=== PATIENT | female | born 1980 | race African-American/Black ===

== ENCOUNTER 2023-06-01 02:43 | Inpatient (IN) | payer BC, SELFPAY ==
[2023-05-31 18:35] VITALS: BP 139/94
--- NOTE | 2023-05-31 21:20 | ED.GENMED ---
History of Present Illness
<Lavern Pascual RISK ASSESSOR - Last Filed: 06/02/23 17:32>
General
Chief Complaint: Abdominal Pain
Source: patient
Exam Limitations: none
Time Seen by Provider: 05/31/23 21:19
Nursing documentation reviewed up to this point in time: agreed with
Travel History
Have you had any contact with someone who has COVID-19?: No
Do you have any symptoms of coronavirus? Fever > 100 degrees, chills, cough, shortness of breath, sore throat, loss of taste or smell, muscle aches, or headache?: No
History of Present Illness
History of Present Illness:
43-year-old female with history of fibroids and ovarian cyst removed, asthma presents stating for 1 week she could not pass gas or burp and she feels bloated. Anything she puts in her mouth whether it be water or something to eat, it 'scott in my
stomach.' She has also developed generalized abdominal pain and has not had a bowel movement since 4 days ago. She denies fever or chills. Denies UTI symptoms
Past History
<Lavern Pascual RISK ASSESSOR - Last Filed: 06/02/23 17:32>
Past History
ED Past Medical History: Other (Endometriosis, )
ED Past Surgical History: Gynecological (fibroid and cyst removal)
Social History
Tobacco: Non-smoker
Alcohol: Occasional
Drug: Marijuana (Daily)
Personal: Single
Living: alone
Employment: Employed
Review of Systems
<Lavern Pascual RISK ASSESSOR - Last Filed: 06/02/23 17:32>
Review of Systems
Allergies reviewed?: Yes
All Other Systems: ROS reviewed and negative except as documented in HPI and ROS
Constitutional: Denies fever
Respiratory: Denies cough or trouble breathing
Cardiac: Denies chest pain
ABD/GI: Reports abdominal pain and constipated; Denies nausea, vomiting, diarrhea, bloody stools or black stools
: Reports other (Currently menstruating); Denies dysuria, frequency, flank pain or urgency
Musculoskeletal: Reports no symptoms
Skin: Reports no symptoms
Neurological: Reports no symptoms
Phy Exam
<Lavern Pascaul, RISK ASSESSOR - Last Filed: 06/02/23 17:32>
Physical Exam
Physical Exam:
GENERAL: No acute distress. A&Ox3.
CONSTITUTIONAL: Afebrile.
EYES: Clear, conjunctivae normal
ENMT: moist mucus membranes, Pharynx nl
RESPIRATORY: Regular respirations, nonlabored, lungs clear.
CARDIOVASCULAR: Regular rate and rhythm, no murmurs, no rubs.
GI: Soft, generally tender to palpate, normal BS
Rectal exam: No stool in rectal vault, mildly heme positive but patient is currently menstruating
MUSCULOSKELETAL: Moves with ease. Well perfused.
SKIN: Warm, dry, normal
PSYCH: Normal mood and affect. Well kept, interactive and appropriate
NEUROLOGIC: Awake, alert and oriented. No focal neurological deficits
Course
<Lavern Pascual, RISK ASSESSOR - Last Filed: 06/02/23 17:32>
Orders/Labs/Results
Orders:
Orders
05/31/23 21:36
0.9% Sodium Chloride 1000 ml [Nss] 1,000 ml IV BOLUS
Mag Hydrox/Al Hydrox/Simeth [Maalox] 30 ml Phenobarb/Hyoscy/Atropine/Scop [] 10 ml Viscous Lidocaine 2% [Xylocaine Viscous Cup] 10 ml PO NOW
05/31/23 21:45
Phenobarb/Hyoscy/Atropine/Scop [] 10 ml .ROUTE .STK-MED ONE
05/31/23 21:46
Mag Hydrox/Al Hydrox/Simeth [Maalox] 30 ml .ROUTE .STK-MED ONE
Viscous Lidocaine 2% [Xylocaine Viscous Cup] 15 ml .ROUTE .STK-MED ONE
05/31/23 22:01
Complete Blood Count/With Diff Urgent
05/31/23 22:52
Comprehensive Metabolic Panel Urgent
HCG, Serum Qualitative Screen Urgent
Lipase Urgent
05/31/23 23:54
Add On- LAB Urgent
Tests Added?: serum HCG
06/01/23 00:15
CT Abd/Pel (IV only)-[facility] only Urgent
Comment: scan delayed hcg never ordered
Reason For Exam: bloating, abd pain
06/01/23 02:13
Admit/Transfer Patient As Directed
Co-Sign Provider:
Level of Care: Inpatient admission
Assign to:: Medical/Surgical
Physician / Group: Mak
Diagnosis: acute pancreatitis
Reason for Hospitalization: acute pancreatitis
Expected length of stay greater than two midnights?: Yes
ELOS- Estimated Length of Stay in days: 3
I certify the patient meets the requirements for IP care: Yes
06/01/23 02:14
Code Status As Directed
Resuscitation Status: Full Code
06/01/23 02:22
0.9% Sodium Chloride 1000 ml [Nss] 1,000 ml IV 125 mls/hr
Acetaminophen [Tylenol] 650 mg PO Q4HPRN PRN
Ketorolac [Toradol] 15 mg IV Q6HPRN PRN
Morphine Sulfate 2 mg IV Q4HPRN PRN
Ondansetron Injectable [Zofran] 4 mg IV Q6HPRN PRN
06/01/23 02:22
Activity As Directed
Activity Level: Out of Bed-Early Mobility
Vital Signs As Directed
Frequency: Per unit guidelines
DX Deep Vein Thrombosis Video Routine
06/01/23 05:55
Cardiovascular Evaluation IN AM
Complete Blood Count/With Diff IN AM
Comprehensive Metabolic Panel IN AM
Lipase IN AM
TSH IN AM
06/01/23 Breakfast
NPO
Allow oral meds: Yes
Allow clear liquids: Sips of Clears
NPO with Ice Chips: Yes
06/01/23 18:00
Enoxaparin Sodium [Lovenox] 40 mg SC QPM
Abnormal Lab Results
05/31/23 05/31/23
22:01 22:52
Neutrophils % 34.0 L %
(42.2-75.2)
Lymphocytes % 54.4 H %
(20.5-51.1)
Lipase 689 H U/L
(23-300)
05/31/23 22:01
05/31/23 22:52
Vital Signs
Initial and Last Documented VS:
Initial Vital Signs
Temp Pulse Resp BP Pulse Ox
98.0 F 67 18 139/94 98
05/31/23 18:35 05/31/23 18:35 05/31/23 18:35 05/31/23 18:35 05/31/23 18:35
Last Documented Vital Signs
Temp Pulse Resp BP Pulse Ox
98.2 F 64 20 150/86 99
06/01/23 15:10 06/01/23 15:10 06/01/23 15:10 06/01/23 15:10 06/01/23 15:10
<Federico Locke, DO - Last Filed: 06/08/23 09:47>
Orders/Labs/Results
Orders:
Orders
05/31/23 21:36
0.9% Sodium Chloride 1000 ml [Nss] 1,000 ml IV BOLUS
Mag Hydrox/Al Hydrox/Simeth [Maalox] 30 ml Phenobarb/Hyoscy/Atropine/Scop [] 10 ml Viscous Lidocaine 2% [Xylocaine Viscous Cup] 10 ml PO NOW
05/31/23 21:45
Phenobarb/Hyoscy/Atropine/Scop [] 10 ml .ROUTE .STK-MED ONE
05/31/23 21:46
Mag Hydrox/Al Hydrox/Simeth [Maalox] 30 ml .ROUTE .STK-MED ONE
Viscous Lidocaine 2% [Xylocaine Viscous Cup] 15 ml .ROUTE .STK-MED ONE
05/31/23 22:01
Complete Blood Count/With Diff Urgent
05/31/23 22:52
Comprehensive Metabolic Panel Urgent
HCG, Serum Qualitative Screen Urgent
Lipase Urgent
05/31/23 23:54
Add On- LAB Urgent
Tests Added?: serum HCG
06/01/23 00:15
CT Abd/Pel (IV only)-[facility] only Urgent
Comment: scan delayed hcg never ordered
Reason For Exam: bloating, abd pain
06/01/23 02:13
Admit/Transfer Patient As Directed
Co-Sign Provider:
Level of Care: Inpatient admission
Assign to:: Medical/Surgical
Physician / Group: Mak
Diagnosis: acute pancreatitis
Reason for Hospitalization: acute pancreatitis
Expected length of stay greater than two midnights?: Yes
ELOS- Estimated Length of Stay in days: 3
I certify the patient meets the requirements for IP care: Yes
06/01/23 02:14
Code Status As Directed
Resuscitation Status: Full Code
06/01/23 02:22
0.9% Sodium Chloride 1000 ml [Nss] 1,000 ml IV 125 mls/hr
Acetaminophen [Tylenol] 650 mg PO Q4HPRN PRN
Ketorolac [Toradol] 15 mg IV Q6HPRN PRN
Morphine Sulfate 2 mg IV Q4HPRN PRN
Ondansetron Injectable [Zofran] 4 mg IV Q6HPRN PRN
06/01/23 02:22
Activity As Directed
Activity Level: Out of Bed-Early Mobility
Vital Signs As Directed
Frequency: Per unit guidelines
DX Deep Vein Thrombosis Video Routine
06/01/23 05:55
Cardiovascular Evaluation IN AM
Complete Blood Count/With Diff IN AM
Comprehensive Metabolic Panel IN AM
Lipase IN AM
TSH IN AM
06/01/23 Breakfast
NPO
Allow oral meds: Yes
Allow clear liquids: Sips of Clears
NPO with Ice Chips: Yes
06/01/23 18:00
Enoxaparin Sodium [Lovenox] 40 mg SC QPM
Abnormal Lab Results
05/31/23 05/31/23
22:01 22:52
Neutrophils % 34.0 L %
(42.2-75.2)
Lymphocytes % 54.4 H %
(20.5-51.1)
Lipase 689 H U/L
(23-300)
05/31/23 22:01
05/31/23 22:52
Vital Signs
Initial and Last Documented VS:
Initial Vital Signs
Temp Pulse Resp BP Pulse Ox
98.0 F 67 18 139/94 98
05/31/23 18:35 05/31/23 18:35 05/31/23 18:35 05/31/23 18:35 05/31/23 18:35
Last Documented Vital Signs
Temp Pulse Resp BP Pulse Ox
98.2 F 64 20 150/86 99
06/01/23 15:10 06/01/23 15:10 06/01/23 15:10 06/01/23 15:10 06/01/23 15:10
<Lavern Pascual RISK ASSESSOR - Last Filed: 06/02/23 17:32>
MDM/Problems Addressed
Differential Diagnosis Includes:
Constipation, GERD, PUD, gastritis cholecystitis, cholelithiasis
MDM/Problems Addressed:
43-year-old female with history of fibroids and ovarian cyst removed, asthma presents stating for 1 week she could not pass gas or burp and she feels bloated. Anything she puts in her mouth whether it be water or something to eat, it 'scott in my
stomach.' She has also developed generalized abdominal pain and has not had a bowel movement since 4 days ago. She denies fever or chills. Denies UTI symptoms
Afebrile, NAD
05/31/2023 2347 PM
CBC normal
CMP normal
Lipase elevated at [address] scan
States the GI cocktail
Case discussed with Dr. Sanchez who will assume care from this point.
<Federico Locke, DO - Last Filed: 06/08/23 09:47>
MDM/Problems Addressed
MDM/Problems Addressed:
43-year-old female with history of fibroids and ovarian cyst removed, asthma presents stating for 1 week she could not pass gas or burp and she feels bloated. Anything she puts in her mouth whether it be water or something to eat, it 'scott in my
stomach.' She has also developed generalized abdominal pain and has not had a bowel movement since 4 days ago. She denies fever or chills. Denies UTI symptoms
Afebrile, NAD
05/31/2023 2347 PM
CBC normal
CMP normal
Lipase elevated at [address] scan
States the GI cocktail
Case discussed with Dr. Locke who will assume care from this point.
<Federico Locke, DO - Last Filed: 06/08/23 09:47>
*Radiology
Radiology exam reviewed: radiology read reviewed (CT abdomen pelvis shows mild pancreatitis)
*Pulse Oximetry
Patient hypoxic: no
*EKG
Interpreted by ED Provider?: NA
*Grinding And Spraying Supervisor Interpretation
Rate: Grinding And Spraying Supervisor- N/A
*Critical Care Note
Total Time (30-74mins, 75-104mins- exclusive of procedures): Not Applicable
ED Attending Note
<Lavern Pascual RISK ASSESSOR - Last Filed: 06/02/23 17:32>
-
Portions of this chart may have been created with voice recognition software.� Occasional wrong word or��sound alike� substitutions may have occurred due to the inherent limitations of voice recognition software.
<Federico Locke DO - Last Filed: 06/08/23 09:47>
ED Attending Note
Patient seen and examined by attending physician: Yes
ED Attending Note:
I have reviewed and agree with history and treatment plan. My exam revealed 43-year-old female with mild pain. CT abdomen pelvis consistent with mild pancreatitis. Admit to hospitalist.
Discharge Plan
Departure
Patient Disposition: Admit
Date of Disposition: 06/01/23
Time of Disposition: 01:38
Admit to: Med/Surg
Presentation/result/management discussed w/ accepting MD/DO: Hospitalist
Patient with high blood pressure during this ER visit?: Yes
Condition: Good
Discharge Problem:
Acute pancreatitis
Interventions
Interventions:
*Risk Screen - Suicide Last Done: 06/01/23 14:37
*General Assessment Last Done: 06/01/23 02:16
*Neglect/Abuse Screening Last Done: 05/31/23 20:40
ED- Fall Risk Assessment Last Done: 06/01/23 02:16
*ED COVID-19 Vaccine History Last Done: 06/01/23 14:37
*Nursing Disposition Last Done: 06/01/23 13:53
NF-Oqcebt-Hprioljiea Assessment Last Done: 05/31/23 22:11
Discharge Date and Time
Discharge Date/Time: 06/01/23 13:54
[2023-05-31] MEDS: MAALOX 10 PO (21:49)
[2023-05-31] MEDS: NSS 1000 IV (22:01)
[2023-05-31 22:08] LABS: % Basophils 0.5 % (0-2); % Eosinophils 2.1 % (0-6); % Immature Granulocytes 0.2 % (0-0.5); % Lymphocytes 54.4 % (20.5-51.1); % Monocytes 8.8 % (1.7-9.3); Absolute Eosinophils 0.1 10^3/uL (0-0.7); Absolute Lymphocytes 3.1 10^3/uL (1.2-3.4); Absolute Monocytes 0.5 10^3/uL (0.1-0.6); Hemoglobin 13.9 g/dL (12.0-16.0); Mean Corp Hgb Conc. 33.9 g/dL (33.0-37.0); Mean Corpuscular Hgb 27.6 pg (27.0-31.0); Mean Corpuscular Volume 81.5 fL (81.0-99.0); Mean Platelet Volume 9.3 fL (7.4-10.4); Nucleated Red Blood Cells % 0 %; Platelet Count 285 10^3/uL (130-400); Red Blood Cell Count 5.03 10^6/uL (4.20-5.40); Red Cell Dist. Width 14.2 % (11.5-14.5); White Blood Cell Count 5.8 10^3/uL (4.8-10.8)
[2023-05-31 23:37] LABS: ALT (SGPT) 21 U/L (0-35); AST (SGOT) 25 U/L (14-36); Albumin 3.9 g/dl (3.5-5.0); Alkaline Phosphatase 89 U/L (38-126); Blood Urea Nitrogen 16 mg/dl (7-17); Calcium 8.7 mg/dl (8.4-10.2); Carbon Dioxide 23 mmol/L (22-30); Chloride 106 mmol/L (98-107); Glucose 96 mg/dl (70-99); Lipase 689 U/L (23-300); Potassium 3.7 mmol/L (3.5-5.1); Sodium 135 mmol/L (135-145); Total Bilirubin 0.5 mg/dl (0.2-1.3); Total Protein 7.1 g/dl (6.3-8.2); eGFR > 60.00
[2023-06-01 00:07] LABS: HCG, Serum Qualitative Screen Negative
--- NOTE | 2023-06-01 02:18 | HPS.HSE ---
Family Physician
-
Family Physician: NOT KNOW UNKNOWN - PT DOES
Chief Complaint
-
Abdominal pain
History of Present Illness
A pleasant 43-year-old female with history of endometriosis and usually get painful instruction., Presented to the hospital complaining of 1 week moderately severe generalized abdominal pain mostly upper arm right upper quadrant area started last
Wednesday, pain is moderately severe in nature, radiating to lumbar area only, no relieving factor,, initially thought to have pain related to having a stroke. But after that. Completed the pain persist worse when she eats or drink and she feels food
stuck in the upper abdomen, denies any fever or chills or cough or congestion, no diarrhea or constipation, no urinary symptoms.
No headache or vision change or chest pain or cough or congestion or any sick contacts or recent travel.
Workup in the ER concerning for acute pancreatitis.
Patient not taking any medication and drinks couple of beers on Saturdays but smokes marijuana on daily basis.
LFTs normal
Medical History
Past Medical History
Past Medical History: Reports Other
Additional Past Medical History:
Past medical history archive reviewed: None
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
Family history: Reviewed and noncontributory
Past Surgical History: Reports Other
Social History
Unable to obtain full social history at this time due to: Other
Family History
Family History: Other
Allergies / Home Medications
Allergies reflects when Allergies were last updated in [facility].
Home Medications with original date entered in [facility]
Allergy/Medication List:
Allergies
Allergy/AdvReac Type Severity Reaction Status Date / Time
bee venom protein (honey bee) Allergy Unknown Verified 05/31/23 18:42
Review of Systems
-
A 12 point ROS was completed and negative except as noted: Yes
Physical Exam
Vital Signs
Vital Signs
Temp Pulse Resp BP Pulse Ox
98.0 F 67 18 139/94 98
05/31/23 18:35 05/31/23 18:35 05/31/23 18:35 05/31/23 18:35 05/31/23 18:35
Physical exam:
General: Awake, alert and oriented x3, not in distress and holds appropriate conversation.
HEENT: No active discharge, ecchymosis or bruising, moist lips, tongue and mucous membrane.
Eyes: No discharge or red conjunctiva, no nystagmus, pupils are reactive and equal
Neck:Supple, no JVD no bruit no goiter.
Respiratory: Normal AP contour and diameter, normal chest wall movement, normal respiratory effort, no respiratory distress,
Lungs: Good air entry bilaterally, no wheezing or rhonchi, no rales or crackles
Heart: S1, S2 regular, normal rate, no added sound.
Gastrointestinal: Positive bowel sounds, soft, mild epigastric tenderness with no guarding or rigidity or organomegaly
Musculoskeletal: , no chest wall abnormality or tenderness. All joints and extremities have good range of motion, no muscle tenderness or any joint swelling or tenderness.
Extremities: No pitting edema, good peripheral pulses, good range of motion
Skin: Warm and dry, no ulceration, normal color.
Neurological: Awake, alert and oriented x3, no facial droop, speech clear and comprehensive, good muscle tone, normal sensory and motor function
Psychiatric: Normal mood, normal thought and judgment, normal affect,
Physical Exam
General: Other
Laboratory Results
-
05/31/23 22:01
05/31/23 22:52
Laboratory Results
Total Bilirubin 0.5 mg/dl (0.2-1.3) 05/31/23 22:52
AST 25 U/L (14-36) 05/31/23 22:52
ALT 21 U/L (0-35) 05/31/23 22:52
Alkaline Phosphatase 89 U/L (38-126) 05/31/23 22:52
Lipase 689 U/L (23-300) H 05/31/23 22:52
CT abdomen and pelvis: Reviewed by me show evidence of pancreatitis while official report is pending. Please refer to the official report once available.
Data Reviewed
-
CT Scan: Image Personally Visualized and interpreted and Discussed with Patient
Lab Data: Labs Reviewed by me and Discussed with Patient
Old Records: Reviewed
Impression/Plan
-
IMPRESSION:
Pleasant 33-year-old female presents to the hospital complaining of abdominal pain mostly upper and right upper quadrant, workup concerning for pancreatitis, so far no clear reason.
Acute pancreatitis
Intractable abdominal pain
Nausea
PLAN:
So far no clear causes: No alcohol use heavily, LFTs normal provide obstructive jaundice Common bile duct stone causing pancreatitis,, other causes need to be considered,
If pain persist MRCP may need to be considered
If not improved consider GI consult
N.p.o. for now except medication and sips of water and ice chips
Pain medication with morphine and Toradol as needed
Zofran as needed
IV fluid
Recheck lab
All discussed with the patient in detail expressed understanding
CODE STATUS full code
DVT prophylax Lovenox
[2023-06-01] MEDS: NSS 1000 IV ×2 (02:32→11:10)
[2023-06-01 02:36] VITALS: BP 122/76
[2023-06-01] MEDS: MELATONIN 5 MG PO (03:13)
[2023-06-01] MEDS: TORADOL 15 MG IV (03:39)
[2023-06-01 06:31] LABS: % Basophils 0.4 % (0-2); % Eosinophils 1.6 % (0-6); % Immature Granulocytes 0.4 % (0-0.5); % Lymphocytes 35.2 % (20.5-51.1); % Neutrophils 52.4 % (42.2-75.2); Absolute Eosinophils 0.1 10^3/uL (0-0.7); Absolute Lymphocytes 1.7 10^3/uL (1.2-3.4); Absolute Monocytes 0.5 10^3/uL (0.1-0.6); Absolute Neutrophils 2.6 10^3/uL (1.4-6.5); Hematocrit 37.2 % (37.0-47.0); Hemoglobin 12.5 g/dL (12.0-16.0); Mean Corp Hgb Conc. 33.6 g/dL (33.0-37.0); Mean Corpuscular Hgb 27.7 pg (27.0-31.0); Mean Corpuscular Volume 82.3 fL (81.0-99.0); Nucleated Red Blood Cells % 0 %; Platelet Count 282 10^3/uL (130-400); Red Blood Cell Count 4.52 10^6/uL (4.20-5.40); White Blood Cell Count 4.9 10^3/uL (4.8-10.8)
[2023-06-01 06:45] LABS: ALT (SGPT) 21 U/L (0-35); AST (SGOT) 26 U/L (14-36); Albumin 3.6 g/dl (3.5-5.0); Alkaline Phosphatase 84 U/L (38-126); Blood Urea Nitrogen 13 mg/dl (7-17); Calcium 8.6 mg/dl (8.4-10.2); Carbon Dioxide 23 mmol/L (22-30); Chloride 109 mmol/L (98-107); Glucose 103 mg/dl (70-99); HDL Cholesterol 47 mg/dl; LDL Cholesterol, Calculated 113 mg/dl; Lipase 427 U/L (23-300); Potassium 4.5 mmol/L (3.5-5.1); Sodium 135 mmol/L (135-145); Total Bilirubin 0.7 mg/dl (0.2-1.3); Total Cholesterol 177 mg/dl (50-199); Total Protein 6.6 g/dl (6.3-8.2); Triglyceride 87 mg/dl (10-149); Very Low Density Lipoprotein 17 mg/dl (0-30); eGFR > 60.00
[2023-06-01 07:12] LABS: TSH 0.99 uIU/ml (0.47-4.68)
--- NOTE | 2023-06-01 07:57 | W.PN.HOSP.TC ---
Today's Communication/Plan
-
Continue current management. Discharge planning in progress
Assessment / Plan
Assessment / Plan
Physical exam:
General: Well Developed, Well Nourished and No Apparent Distress
HEENT: Normocephalic, Atraumatic and Moist Mucous Membranes
Respiratory: Clear to Auscultation; Negative Wheezes, Rales or Rhonchi
Cardiac: Regular Rhythm and S1/S2
GI: Soft, Tender and Nondistended
Musculoskeletal: No Clubbing, No Cyanosis and No Edema
Neuro: Awake, Alert and Oriented
Psych: Calm
A/P:
Abdominal pain:
-Likely etiology related to constipation and endometriosis
-Elevated pancreatic enzymes not consistent with clear-cut evidence of pancreatitis
-GI consulted and discussed with GI.
-Plan to do an intravaginal pelvic ultrasound for better evaluation of findings on CT about the cervix.
-Started on diet today
-Started on bowel regimen
-[facility] IMPLEMENTATION SPECIALIST consulted ([employer] text to [facility] today and they said they will come and evaluate her her but later on I texted them again to see when will they see her but they said that they are very busy and cannot see her today and from their standpoint she can
possibly be discharged and see them as outpatient).
Alcohol use disorder:
-No evidence of alcohol withdrawal
-Recommended abstinence
DVT prophylaxis:
-SCDs
CODE STATUS:
-Full code
Anticipated Discharge: Today
Subjective/Interval History
-
Date of Service: June 01, 2023
Patient currently denies any abdominal pain nausea or vomiting. Patient currently has her menstruation. No fevers or chills.
Objective Data
-
Labs:
Laboratory Results
05/31/23 05/31/23 06/01/23
22:01 22:52 05:55
WBC 5.8 4.9
Hgb 13.9 12.5
Hct 41.0 37.2
Plt Count 285 282
Sodium Cancelled 135 135
Potassium Cancelled 3.7 4.5
Chloride Cancelled 106 109 H
Carbon Dioxide Cancelled 23 23
BUN Cancelled 16 13
Creatinine Cancelled 1.0 0.9
Glucose Cancelled 96 103 H
Calcium Cancelled 8.7 8.6
Total Bilirubin Cancelled 0.5 0.7
AST Cancelled 25 26
ALT Cancelled 21 21
Alkaline Phosphatase Cancelled 89 84
Vital Signs:
Vital Signs
Temp Pulse Resp BP Pulse Ox
98.0 F 56 16 122/76 94
05/31/23 18:35 06/01/23 02:36 06/01/23 02:36 06/01/23 02:36 06/01/23 02:36
--- NOTE | 2023-06-01 08:11 | CON.GI ---
Addendum entered and electronically signed by Andria Stuart MD 06/01/23 10:55:
I saw and examined the patient.
The LIFE SCIENCE RESEARCH ASSISTANT's note was reviewed and I agree with the note.
Comment: This is a 43-year-old female who has a history of severe endometriosis with menorrhagia and painful periods, prior ovarian cyst removal and rest as below who presents with symptoms of abdominal bloating with diffuse abdominal pain for 4 to
5 days prior to admission. On admission CT shows delayed enhancement of the cervix questionable cervical carcinoma versus timing of contrast bolus, pancreas, liver and gallbladder appeared unremarkable. She has not had a bowel movement for 5 days
prior to admission. Since admission she received pain medication in the emergency room she has not had any further pain, no nausea vomiting, no rectal bleeding or melena. She also denies any symptoms of dyspepsia. Lipase level was elevated on
admission which has come down and also her LFTs are normal. She does have a prior history of alcohol abuse but she says that at the age of 32 she had cut back significantly on drinking and now drinks on Saturdays about 3 to 4 glasses of alcohol. no
prior h/o pancreatitis.
Assessment and plan 1. Abdominal pain with bloating associated with her periods with known history of endometriosis most likely related to this and possible PCOS ? ruptured cyst. Agree with CRANBERRY BOG SUPERVISOR consult most likely etiology is CRANBERRY BOG SUPERVISOR and constipation,
she did have elevated lipase level but pancreas appears normal on CT and she has no symptoms of pancreatitis currently. She does have prior history of alcohol abuse but currently only drinks on Saturdays about 3-4 drinks. Okay to resume diet will
start her on laxatives with MiraLAX and senna. Also doubt peptic ulcer disease she has currently no symptoms of dyspepsia but given that she does take NSAIDs intermittently will start her on Pepcid for now. She currently denies any epigastric pain.
Follow-up with GI as outpatient, currently does not need endoscopy or colonoscopy, will sign off and will be available as needed
Original Note:
Consultation
-
Date/Time Consultation Requested: 06/01/23 0800
Date/Time Consultation Performed: 06/01/23 0815
Requesting Provider: Chino Nava MD
Performing Provider: BERLIN Smallwood, Andria Stuart MD
Reason for Consultation: pancreatitis
Medical History
Chief Complaint / HPI
Chief Complaint: abdominal pain
History of Present Illness:
Pt is a 43yo presents with hx endometriosis, asthma, renal stones, prior ovarian cyst removal and endometrial surgery presents to with onset of generalized abdominal pain. On admission she is noted with lipase 689 with drop to 427 several hours
after admission with normal LFT's. Ct on admission noted with delayed enhancement of cervix and lower uterine segment cervical cancer within differential and 7 mm non obstructing renal stone pancreas normal. Pt admits to chronic lower abdominal
pain that it rather debilitating 3 days per month that she related to her monthly cycle and endometriosis. She now notes worsening diffuse abdominal pain worse on right side /10 with constipation which is abnormal for patient. Pt states pain
improved with pain meds in ER. Pain was worse with eating and sitting down. She denies nausea, vomiting, diarrhea, blood or black in stools. No prior EGD/colon.
Past Medical History
Past Medical History: Asthma and Other (endometriosis, kidney stones)
Past Surgical History: Orthopedic (ovarian cyst removal, surgery for endometroisis)
Social History
Tobacco: Non-Smoker
Alcohol: None
Drug: Marijuana (daily)
Living: Alone
Employment: Employed
Family History
Family History: Other (mother with GERD no family hx GI cancers )
Allergies / Home Medications
Allergy/AdvReac Type Severity Reaction Status Date / Time
bee venom protein (honey bee) Allergy Unknown Verified 05/31/23 18:42
Medication Instructions Recorded
cyclobenzaprine 10 mg tablet 10 mg PO TID PRN muscle spasms 06/01/23
Review of Systems
-
History Source: Patient
Constitutional: Reports Weight Gain
EENT: Reports No Symptoms
Respiratory: Reports No Symptoms
Cardiac: Reports No Symptoms
Abdomen/GI: Reports Abdominal Pain and Constipated
: Reports No Symptoms
Musculoskeletal: Reports No Symptoms
Skin: Reports No Symptoms
Neurological: Reports Weakness
Endocrine: Reports No Symptoms
Hematologic/Lymphatic: Reports No Symptoms
Vital Signs
Temp Pulse Resp BP Pulse Ox
98.0 F 56 16 122/76 94
05/31/23 18:35 06/01/23 02:36 06/01/23 02:36 06/01/23 02:36 06/01/23 02:36
Physical Exam
Exam
General: Well Developed, Well Nourished and No Apparent Distress
HEENT: Normocephalic and Anicteric
Respiratory: Clear
Cardiac: Regular Rhythm
GI: Soft, Non Distended and Tender (diffuse )
Musculoskeletal: No Clubbing and No Cyanosis
Skin: Warm and Dry
Neuro: Awake, Alert and AO x 3
Psych: Calm
Results
WBC 4.9 10^3/uL (4.8-10.8) 06/01/23 05:55
Hgb 12.5 g/dL (12.0-16.0) 06/01/23 05:55
Hct 37.2 % (37.0-47.0) 06/01/23 05:55
MCV 82.3 fL (81.0-99.0) 06/01/23 05:55
Plt Count 282 10^3/uL (130-400) 06/01/23 05:55
Absolute Neuts (auto) 2.6 10^3/uL (1.4-6.5) 06/01/23 05:55
Sodium 135 mmol/L (135-145) 06/01/23 05:55
Potassium 4.5 mmol/L (3.5-5.1) 06/01/23 05:55
Chloride 109 mmol/L (98-107) H 06/01/23 05:55
Carbon Dioxide 23 mmol/L (22-30) 06/01/23 05:55
BUN 13 mg/dl (7-17) 06/01/23 05:55
Creatinine 0.9 mg/dL (0.6-1.0) 06/01/23 05:55
Calcium 8.6 mg/dl (8.4-10.2) 06/01/23 05:55
Total Bilirubin 0.7 mg/dl (0.2-1.3) 06/01/23 05:55
AST 26 U/L (14-36) 06/01/23 05:55
ALT 21 U/L (0-35) 06/01/23 05:55
Alkaline Phosphatase 84 U/L (38-126) 06/01/23 05:55
Lipase 427 U/L (23-300) H 06/01/23 05:55
Diagnostic Image Results:
06/01/23 �CT Abd/Pel (IV only)- only
1).There is delayed enhancement of the cervix and lower uterine segment. While this may be related to timing of the contrast bolus, pathologic entities including cervical carcinoma are included in differential diagnosis. CRANBERRY BOG SUPERVISOR consult is recommended
pancreas, GB normal
2.). There is a 7 mm nonobstructing calculus in the lower pole of the right kidney
Prior GI Procedures:
EGD: none
Colonoscopy: none
Assessment / Plan
-
Pt is a 43yo presents with hx endometriosis, asthma, renal stones, prior ovarian cyst removal and endometrial surgery presents to with onset of generalized abdominal pain. On admission she is noted with lipase 689 with drop to 427 several hours
after admission with normal LFT's. Ct on admission noted with delayed enhancement of cervix and lower uterine segment cervical cancer within differential and 7 mm non obstructing renal stone with normal pancreas. Pt admits to chronic lower
abdominal pain that it rather debilitating 3 days per month that she related to her monthly cycle and endometriosis. She now notes worsening diffuse abdominal pain worse on right side 10/10 with constipation which is abnormal for patient. Pt
states pain improved with pain meds in ER. Pain was worse with eating and sitting down. No prior EGD/colon. NSAID use monthly last use 1 month ago.
-mild lipase elevation
-diffuse abdominal pain
-constipation
-CT with delayed enhancement of cervix and lower uterine segment cervical cancer within differential and 7 mm non obstructing renal stone
-occasional NSAID use
other medical problems:
-endometriosis
-renal stones
-hx ovarian cyst removal
-endometrial surgery
-hx Asthma
PLAN:
etiology of abdominal pain related to CRANBERRY BOG SUPERVISOR cause, constipation, PUD vs other
reviewed with hospitalist Dr. Nava -- for US pelvis and CRANBERRY BOG SUPERVISOR eval
pain now improving monitor for recurrent symptoms
ok for low fat diet
add Miralax BID and senna with constipation
trend labs
NSAID avoidance
if continued symptoms consider EGD with NSAID use
-
-
Thank you for consultation and allowing me to participate in the patient's care. Please call the household refrigeration mechanic GI physician during the after hours with any questions or concerns.
[2023-06-01] MEDS: MIRALAX PO (09:02)
[2023-06-01] MEDS: MIRALAX 17 GRAMS PO (09:07)
[2023-06-01 11:24] VITALS: BP 145/93
[2023-06-01 14:00] VITALS: BP 119/65; BMI 32.9
[2023-06-01 15:10] VITALS: BP 150/86
[2023-06-01] MEDS: LOVENOX 40 MG SC (17:07)
--- NOTE | 2023-06-01 17:08 | W.DCSUMMARY ---
Discharge Summary
Discharge Data
Date of Admission: 06/01/23
Date of Discharge: 06/01/23
-
Pending Results: No
Hospital Course
Patient 43 years old female came into the hospital abdominal pain. She had some elevated pancreatic enzymes. She also had a CT scan of the abdomen that shows normal pancreas but shows some abnormalities in the uterine cervix. GI was consulted.
GI did not feel that this was pancreatitis neither did we. She did have some constipation. She had some bowel regiment and she was able to tolerate diet without any problems. Will stop IV fluids and she did not require any pain medications. We
had a pelvic ultrasound and that shows no significant abnormalities of the cervix. We felt some of the etiology of her pain are related to endometriosis. Will were going to have PROGRAM SUPERVISOR to see her as inpatient but PROGRAM SUPERVISOR was very busy and recommended to
have her see PROGRAM SUPERVISOR as outpatient. Otherwise, patient hemodynamically stable and symptomatically improved.
Discharge Plan
-
Patient Disposition: Home (Routine Discharge)
Discharge Diagnosis/Procedures: Abdominal pain. Constipation. Suspicion for endometriosis.
Diet: Low Cholesterol
Activity: As tolerated
Driving Restrictions: As prior to admission
Blood Work: Please PCP to order CBC, BMP within 1 week.
Referrals:
Primary care, provider [Other] (See less than 1 week)
Kristina Holland DO [Active] - in one to two weeks
Prescriptions:
New
polyethylene glycol 3350 [Miralax] 17 gram/dose powder
4 g PO DAILY Qty: 119 0RF
Continued
cyclobenzaprine 10 mg Tablet
10 mg PO ONCE PRN (Reason: muscle spasms)
acetaminophen [Tylenol Extra Strength] 500 mg Tablet
1,000 mg PO Q6H PRN (Reason: mild pain)
albuterol sulfate 90 mcg/actuation Hfa Aerosol Inhaler
2 puff INHALATION R Q6HPRN PRN (Reason: sob)
simethicone 80 mg Tablet,Chewable
160 mg PO HS PRN (Reason: stomach discomfort)
Visbiome 112.5 billion cell Capsule
2 cap PO DAILY
turmeric 400 mg Capsule
400 mg PO DAILY
Prunelax
1 tab PO DAILYPRN PRN (Reason: constipation)
Patient Comments:
06/01/2023, maximum relief.
cholecalciferol (vitamin D3)
1 tab PO DAILY
Patient Comments:
06/01/2023, per pt., she ran out; however, she normally takes this vitamin daily.
Discharge Orders:
Discharge Patient (As Directed); Ordered 06/01/23
Ordered By: Chino Nava
== END 2023-06-01 18:48 | disposition home or self-care (01) | DRG 392 ==
LOC: 4 WEST ACU 02:43
PROVIDERS: Registered Nurse; ADMITTING PHYSICIAN Internal Medicine; ATTENDING PHYSICIAN Hospitalist; CONSULT PHYSICIAN Internal Medicine Gastroenterology; EMERGENCY PHYSICIAN Emergency Medicine
DX: R10.9 Unspecified abdominal pain (principal); N80.9 Endometriosis, unspecified; K59.00 Constipation, unspecified; F10.10 Alcohol abuse, uncomplicated
CPT/HCPCS: 74177; 76830; 80053; 80061; 83690; 84443; 84703; 85025; 96360; 99285; Q9967